=== PATIENT | female | born 1940 | race Caucasian/White ===

== ENCOUNTER → 2019-04-14 10:45 | Outpatient (BNVA) | payer BC, SELFPAY | PROVIDERS: Family Provider Nurse Practitioner Family; PCP Nurse Practitioner Family; Visit Provider Internal Medicine Rheumatology | DX: M35.00 Sjogren syndrome, unspecified (principal); Z79.899 Other long term (current) drug therapy; R76.8 Other specified abnormal immunological findings in serum; M19.041 Primary osteoarthritis, right hand; M19.042 Primary osteoarthritis, left hand; J44.9 Chronic obstructive pulmonary disease, unspecified; Z87.891 Personal history of nicotine dependence | CPT/HCPCS: 36415; 80076; 82565; 85651; 86140; 99214 ==

== ENCOUNTER → 2019-04-14 11:49 | Outpatient (BNVA) | payer BC, SELFPAY | PROVIDERS: Family Provider Nurse Practitioner Family; PCP Nurse Practitioner Family; Visit Provider Internal Medicine Rheumatology | DX: R76.8 Other specified abnormal immunological findings in serum (principal); M35.00 Sjogren syndrome, unspecified; Z79.899 Other long term (current) drug therapy; M19.90 Unspecified osteoarthritis, unspecified site; M19.041 Primary osteoarthritis, right hand | CPT/HCPCS: 85025 ==

== ENCOUNTER → 2021-03-21 12:25 | Outpatient (BNVA) | payer BC, SELFPAY | PROVIDERS: Family Provider Nurse Practitioner Family; PCP Nurse Practitioner Family; Visit Provider Nurse Practitioner Family | DX: Z20.822 Contact with and (suspected) exposure to COVID-19 (principal); J40 Bronchitis, not specified as acute or chronic | CPT/HCPCS: 87635 ==

== ENCOUNTER 2021-03-25 13:51 | Emergency (ER) | payer MEDICARE, SELFPAY ==
[2021-03-25 14:15] VITALS: BP 133/55; PULSE 61; RESP 16; O2SAT 93; BMI 28.3
[2021-03-25 14:21] VITALS: O2SAT 93
--- NOTE | 2021-03-25 14:32 | XR_ITS ---
WS: [id number] Exam: XR chest 1V portable [id number] Date/Time of Exam: 03/25/2021 2:45 PM Reason For Exam: dyspnea Comparison 11/17/2011. There is mild infiltrate and/or atelectasis in the right lower lung zone. Remaining lung churchill are c lear heart size is normal. The mediastinum is not widened. Costophrenic angles are sharp. The lungs a re hyperinflated. Bony structures are intact. XR/XR chest 1V portable [id number] IMPRESSION: 1. Mild infiltrate and/or atelectasis in the right lower lung zone. Pulmonary h yperinflation.
--- NOTE | 2021-03-25 14:37 | ED_ITS ---
HPI - COVID General: Chief Complaint: COVID symptoms Stated Complaint: WEAKNESS, COVID Time Seen by Provider: 03/25/21 14:23 Triage information: Has fever, cough or shortness of breath . Exposure to COVID + person last 14 days History of Present Illness: HPI Narrative: 80 year old female presents to ER via EMS for shortness of breath. History of COPD. Tested for COVID 4 days ago and was told it was COVID positive this zonia greco Patient reports symptoms have been going on for 2 weeks, but this morning she was feeling more SOB and fatigue. Patient is not on any oxygen at home and her O2 sat was in the high 80s this morning. Was put on 2L nasal cannula and oxygen improved to 93-94%. Report headache, sore throat, and cough. Denies diarrhea. Has not had COVID vaccine. MD complaint: known COVID positive COVID 19 common symptoms: positive cough, dyspnea, fatigue, headache(s) and throat pain; negative nausea, vomiting or diarrhea COVID 19 other sytmptoms: positive requiring oxygen; negative chest pain Onset (ago): day(s) Pertinent comorbid conditions: COPD/respiratory disease COVID Results: SARS-CoV-2 RNA (RT-PCR) Detected (NOT DETECTED) A 03/21/21 12:25 03/21/21 Review of Systems Const: Reports: fatigue ENMT: Reports: throat pain Card: Denies: chest pain, edema, dyspnea on exertion or orthopnea Resp: Reports: dyspnea GI: Denies: nausea, vomiting or diarrhea : Denies: flank pain, difficulty voiding, dysuria, urinary frequency or urinary urgency Skin/Breast: Denies: rash or pruritus Neuro: Reports: headache(s) PFSH ED PFSH: Medical History Bronchitis COPD (chronic obstructive pulmonary disease) Depression GERD (gastroesophageal reflux disease) High risk medication use Osteoarthritis of both hands Positive NOLAN (antinuclear antibody) Sjogren's syndrome Vitamin D deficiency Family History Denies family history of Rheumatoid arthritis Lupus Social History Smoking and tobacco status: never smoked Alcohol intake: never Physical Exam Const: GENERAL APPEARANCE: cooperative and comfortable ORIENTATION/CONSCIOUSNESS: Yes awake, Yes oriented to person, Yes oriented to place and Yes oriented to time OTHER: On 2L of O2. Resp: COMMON NORMALS: normal respiratory effort, No retractions, No use of accessory muscles and clear to auscultation bilaterally AUSCULTATION: clear to auscultation bilaterally Cardio: COMMON NORMALS: regular rate, regular rhythm and No murmurs present (Cardio) RATE: regular rate RHYTHM: regular rhythm GI: COMMON NORMALS: Soft to palpation PALPATION: Yes Soft to palpation, No Tenderness to palpation present (GI) and No Guarding due to palpation present (GI) Neuro: SENSORIUM/ORIENTATION: Yes oriented to person, Yes oriented to place and Yes oriented to time Skin: COMMON NORMALS: no rashes or lesions noted GENERAL SKIN EXAM: no rashes or lesions noted Course Vital Signs: Vital signs: Vital Signs Pulse Rate 61 03/25/21 15:31 Respiratory Rate 17 03/25/21 15:23 Blood Pressure 133/55 03/25/21 14:15 Pulse Oximetry 88 L 03/25/21 16:21 MDM - COVID MDM Narrative Medical decision making narrative: COVID-19. Sats remained stable on oxygen. Discharge home on oxygen 2 L by nasal cannula as well as prednisone. Sats remained in the 90s on the 2 L the last documented sat is at 88% however when a discharge patient and her sats on the 2 L were normal. However follow-up with her primary care doctor the next 1 to 2 days return to the ER if worsens. Lab Data Result diagrams: 03/25/21 14:09 03/25/21 14:09 Labs: Lab Results 03/25/21 03/25/21 03/25/21 14:09 14:09 14:09 WBC 9.1 10^3/uL 10^3/uL (4.0-10.0) RBC 4.40 10^6/uL 10^6/uL (4.1-5.3) Hgb 13.2 g/dL g/dL (11.5-15.3) Hct 42.2 % % (37.0-47.0) MCV 95.9 fl fl (81-99) MCH 30.0 pg pg (28.0-34.0) MCHC 31.3 g/dL g/dL (30.0-36.0) RDW 13.8 % % (12.1-15.1) Plt Count 116 10^3/cmm L 10^3/cmm (130-400) MPV 12.0 fL H fL (7.4-10.4) Neut % (Auto) 84.5 % % Lymph % (Auto) 10.8 % % [facility] % (Auto) 4.0 % % Eos % (Auto) 0.0 % % Baso % (Auto) 0.1 % % Neut # (Auto) 7.66 10^3/uL 10^3/uL (1.8-7.7) Lymph # (Auto) 1.0 10^3/uL 10^3/uL (0.8-4.8) [facility] # (Auto) 0.4 10^3/uL 10^3/uL (0.2-0.9) Eos # (Auto) 0.0 10^3/uL 10^3/uL (0.0-0.8) Baso # (Auto) 0.0 10^3/uL 10^3/uL (0.0-0.1) Nucleated RBC % (auto) 0 % % Nucleated RBCs # 0.0 /100WBC /100WBC Specimen Type Sample Site ABG pH ABG pCO2 ABG pO2 ABG HCO3 ABG Base Excess Remberto Test Hematocrit O2 Delivery Device O2 Liters/Min Social Services Manager ID Sodium 137 mmol/L mmol/L (136-145) Potassium 4.2 mmol/L mmol/L (3.5-5.1) Chloride 102 mmol/L mmol/L (98-107) Carbon Dioxide 21 mmol/L L mmol/L (22-29) Anion Gap 18.2 (5-19) BUN 17 mg/dL mg/dL (8-23) Creatinine 0.9 mg/dL mg/dL (0.5-0.9) GFR Calculation Not Reportable Glucose 118 mg/dL H mg/dL (65-115) Calculated Osmolality 287 mOsm/kg mOsm/kg (285-295) Lactic Acid 1.2 mmol/L mmol/L (0.5-2.2) Calcium 7.9 mg/dL L mg/dL (8.5-10.5) Total Bilirubin 0.4 mg/dL mg/dL (0.15-1.2) AST 49 U/L H U/L (0-32) ALT 36 U/L H U/L (0-33) Alkaline Phosphatase 64 IU/L IU/L (35-105) C-Reactive Protein 26.6 mg/L H mg/L (0.0-4.9) Total Protein 7.3 g/dL g/dL (6.6-8.7) Albumin 3.8 g/dL g/dL (3.5-5.2) Globulin 3.5 g/dL g/dL (1.3-4.6) 03/25/21 15:24 WBC RBC Hgb Hct MCV MCH MCHC RDW Plt Count MPV Neut % (Auto) Lymph % (Auto) [facility] % (Auto) Eos % (Auto) Baso % (Auto) Neut # (Auto) Lymph # (Auto) [facility] # (Auto) Eos # (Auto) Baso # (Auto) Nucleated RBC % (auto) Nucleated RBCs # Specimen Type Arterial Sample Site Radial, right ABG pH 7.45 (7.35-7.45) ABG pCO2 32.9 mmHg L mmHg (35-45) ABG pO2 62.4 mmHg L mmHg (80.0-100.0) ABG HCO3 22.9 mmol/L mmol/L (22-26) ABG Base Excess -0.5 mmol/L mmol/L (-2.0-2.0) Remberto Test Pos Hematocrit 40.4 % % (37-47) O2 Delivery Device Nc O2 Liters/Min 2.0 % % Social Services Manager ID Cak Sodium Potassium Chloride Carbon Dioxide Anion Gap BUN Creatinine GFR Calculation Glucose Calculated Osmolality Lactic Acid Calcium Total Bilirubin AST ALT Alkaline Phosphatase C-Reactive Protein Total Protein Albumin Globulin COVID Results: SARS-CoV-2 RNA (RT-PCR) Detected (NOT DETECTED) A 03/21/21 12:25 03/21/21 Discharge Plan Discharge Patient Disposition: Home Clinical Impression: COVID-19, Hypoxia Condition: Stable Prescriptions: New dexamethasone 6 mg tablet 6 mg PO DAILY Qty: 7 0RF Discontinued prednisone 20 mg tablet 20 mg PO BID 5 Days Qty: 10 0RF dexamethasone 6 mg tablet 6 mg PO DAILY 7 Days Qty: 7 0RF No Action levocetirizine [Xyzal] 5 mg tablet 5 mg PO DAILY PRN (Reason: allergy symptoms) 30 Days Qty: 30 0RF cholecalciferol (vitamin D3) 50,000 unit capsule 50,000 unit PO .weekly 0RF albuterol sulfate [ProAir HFA] 90 mcg/actuation HFA aerosol inhaler 2 puff INHALATION Q6H PRN0RF ipratropium-albuterol 0.5 mg-3 mg(2.5 mg base)/3 mL solution for nebulization 3 ml INHALATION Q6H PRN (Reason: wheezing) Qty: 90 0RF benzonatate [Tessalon Perles] 100 mg capsule 100 mg PO TID PRN (Reason: cough) 30 Days Qty: 90 0RF azithromycin 250 mg tablet See Rx Instructions PO .COMPLEX Qty: 6 0RF Rx Instructions: take 500 mg today (day 1), then 250 mg for 4 days (days 2-5) PO hydrocodone-acetaminophen 7.5-325 mg tablet 1 tab PO TID PRN (Reason: pain) 30 Days Qty: 90 0RF Rx Instructions: refill 03/25/2021 albuterol sulfate 2.5 mg /3 mL (0.083 %) solution for nebulization 2.5 mg INHALATION Q6H Qty: 360 1RF omeprazole 20 mg capsule,delayed release(DR/EC) 20 mg PO DAILY Qty: 90 1RF escitalopram oxalate 10 mg tablet See Rx Instructions .ROUTE .COMPLEX Qty: 30 0RF Dose Instruction: TAKE 1 TABLET BY MOUTH DAILY Rx Instructions: TAKE 1 TABLET BY MOUTH DAILY Trelegy Ellipta 100-62.5-25 mcg blister with device See Rx Instructions .ROUTE .COMPLEX Qty: 60 0RF Dose Instruction: INHALE ONE PUFF BY MOUTH EVERY 24 HOURS Rx Instructions: INHALE ONE PUFF BY MOUTH EVERY 24 HOURS Discharge Orders: Discharge ED (Routine); Ordered 03/25/21 Ordered By: Bakari Maher Other Ambulatory Orders: DME: Oxygen (Order) Location: None Selected Ordered By: Bakari Maher Referrals: LINDSEY Kaur, DEMOLITION CRANE OPERATOR [Primary Care Provider] - Patient Instructions: Opioid Safety Coding Level of Care Code ED It Support Technician for Chg Fwd Exam Detailed
[2021-03-25 15:21] LABS: Basophils % 0.1 %; Hematocrit 42.2 % (37.0-47.0); Hemoglobin 13.2 g/dL (11.5-15.3); Lymphocytes % 10.8 %; Mean Corpuscular HGB Conc 31.3 g/dL (30.0-36.0); Mean Corpuscular Volume 95.9 fl (81-99); Monocytes # 0.4 10^3/uL (0.2-0.9); Neutrophils # 7.66 10^3/uL (1.8-7.7); Neutrophils % 84.5 %; Nucleated Red Blood Cells % 0 %; Platelet Count 116 10^3/cmm (130-400); Red Cell Distribution Width 13.8 % (12.1-15.1); White Blood Count 9.1 10^3/uL (4.0-10.0)
[2021-03-25 15:23] VITALS: PULSE 61; RESP 17; O2SAT 93
[2021-03-25] MEDS: albuterol 8 gm MDI 2 PUFF INHALATION (15:23)
[2021-03-25 15:31] VITALS: PULSE 61
[2021-03-25 15:33] LABS: ABG PCO2 32.9 mmHg (35-45); Arterial Blood Gas Hematocrit 40.4 % (37-47); Blood Gas Allen Test Pos; Blood Gas Sample Type Arterial; PO2 ABG 62.4 mmHg (80.0-100.0)
[2021-03-25 15:34] LABS: ABG PH Result 7.45 (7.35-7.45); Base Excess ABG -0.5 mmol/L (-2.0-2.0); HCO3 ABG 22.9 mmol/L (22-26)
[2021-03-25 15:35] LABS: Blood Gas Operator Identificat CAK; Blood Gas Sample Site Radial, right; Oxygen Device NC
[2021-03-25 15:41] LABS: Lactic Sepsis W/Reflex 1.2 mmol/L (0.5-2.2)
[2021-03-25 15:49] LABS: Alanine Aminotransferase 36 U/L (0-33); Albumin Level 3.8 g/dL (3.5-5.2); Alkaline Phosphatase 64 IU/L (35-105); Anion Gap 18.2 (5-19); Aspartate Amino Transferase 49 U/L (0-32); Blood Urea Nitrogen 17 mg/dL (8-23); C Reactive Protein 26.6 mg/L (0.0-4.9); Calcium 7.9 mg/dL (8.5-10.5); Carbon Dioxide 21 mmol/L (22-29); Chloride 102 mmol/L (98-107); Globulin 3.5 g/dL (1.3-4.6); Glucose 118 mg/dL (65-115); Osmolality Calculated 287 mOsm/kg (285-295); Potassium 4.2 mmol/L (3.5-5.1); Sodium 137 mmol/L (136-145); Total Bilirubin 0.4 mg/dL (0.15-1.2); Total Protein 7.3 g/dL (6.6-8.7)
[2021-03-25 16:21] VITALS: O2SAT 88
== END 2021-03-25 17:52 | disposition home or self-care (01) ==
PROVIDERS: Emergency Provider Family Medicine; PCP Nurse Practitioner Family
DX: U07.1 COVID-19 (principal); R09.02 Hypoxemia; J44.9 Chronic obstructive pulmonary disease, unspecified
CPT/HCPCS: 36415; 36600; 71045; 80053; 82803; 83605; 85025; 86140; 94640; 99283; J3535

== ENCOUNTER 2022-03-20 10:20 | Outpatient (CLI) | payer BC, SELFPAY ==
[2022-03-20 11:15] VITALS: BMI 29.2
--- NOTE | 2022-03-20 11:18 | ECG_ITS ---
[facility] Test Date: 2022-03-20 Pat Name: Connie Lagos Department: Room: Gender: Female Clinical Lab Technologist: Yuni Hughes : 1940 Requested By: Kory Tillman Order Number: [id number] Sri MD: Alesia Dumas M.D. Interpretive Statements NAME OF STUDY: LEXISCAN SESTAMIBI STRESS TEST INDICATION: Shortness of Breath, PROCEDURE: At the baseline, the EKG revealed normal sinus rhythm with normal ST Ts. The baseline heart was 63 bpm with a blood pressue of 148/69 mm of Hg Lexiscan was infused over a period of 20 seconds. A total of 0.4 milligrams of Lexiscan was infused. The stress phase was continued for a total of 5 minutes. Heart rate at the end of the stress phase was 72 bpm with a blood pressure 139/60 mm of Hg. The EKG at the peak infusion revealed no significant changes. Sestamibi was injected 20 seconds after the Lexiscan infusion. Heart rate at the end of the recovery phase was 72 bpm with a blood pressure of 139/60 mm of Hg. CONCLUSION: 1. No significant EKG changes with the LexiScan infusion 2. No LexiScan induced chest pain or cardiac arrhythmia 3. Normal blood pressure and heart rate response 4. Sestamibi/sestamibi perfusion scan pending; see separate report. Electronically Signed On 03-21-2022 11:54:26 VOCATIONAL ED INSTRUCTOR by Alesia Dumas M.D. [id number]
--- NOTE | 2022-03-20 11:18 | NMCV_ITS ---
NM ahsan perf SPECT r/s* [id number] Connie Lagos Age: 81 Gender: F : 1940 Exam Date: 03/20/2022 11:18 Ordering Phys: Kory Enriquez MD Technologist: RALPH Meyer Exam Location: [facility] Indications: SHORTNESS OF BREATH STRESS TEST Please see separate stress test report in [facility] for full findings IMAGE PROTOCOL Rest/Stress 1 Lexiscan Day Radiopharmaceutical Dose (mCi) Administration Site Administered by Rest: Tc-99m 10.8 IV RALPH Sylvester Sestamibi Stress:Tc-99m 32.3 IV RALPH Sylvester Sestamibi Rest: 20-Mar-2022 60 Discovery 630 Stress: 20-Mar-2022 30 Discovery 630 0.4mg Lexiscan. Images obtained in supine and prone position. SPECT RESULTS Technical Quality: Excellent Raw Data Analysis: Normal Image Corrections: No attenuation or motion correction applied Summed Stress Score: 0 Summed Rest Score: 0 Summed Difference Score: 0 PERFUSION FINDINGS Fairly uniform myocardial tracer uptake. No significant perfusion abnormalities FUNCTIONAL RESULTS (calculated via Gated SPECT) Stress Image LV EF (%): 80 Stress EDV (mL):64 TID: 1.07 Stress ESV (mL):13 FUNCTIONAL FINDINGS: Segmental wall motion analysis revealing no gross wall motion abnormalities IMPRESSIONS 1. Unremarkable Myocardial perfusion imaging 2. Normal LV ejection fraction of 80% 3. LV wall motion analysis revealing no gross wall motion abnormalities. 4. Normal LV volume Low probability for coronary ischemia, based on the above findings Dr Alesia Dumas MD [facility] (Electronically Signed) Final Date: 20 March 2022 20:01 S
[2022-03-20] MEDS: regadenoson 0.4 Mg/5 ml Syringe IVP (12:30)
[2022-03-20 12:50] VITALS: BP 147/64; PULSE 73
== END 2022-03-20 10:21 | disposition home or self-care (01) ==
PROVIDERS: PCP Internal Medicine Cardiovascular Disease; Visit Provider Internal Medicine Pulmonary Disease
DX: R06.09 Other forms of dyspnea (principal); R06.02 Shortness of breath
CPT/HCPCS: 36415; 78452; 93017; 96374; A9500; J2785

== ENCOUNTER 2022-04-24 12:24 | Outpatient (CLI) | payer BC, SELFPAY | END 2022-04-24 12:25 | disposition home or self-care (01) | LOC: RT 12:25 | PROVIDERS: PCP Internal Medicine Cardiovascular Disease; Visit Provider Internal Medicine Pulmonary Disease | DX: J44.9 Chronic obstructive pulmonary disease, unspecified (principal); U09.9 Post COVID-19 condition, unspecified; R06.02 Shortness of breath | CPT/HCPCS: 94010; 94618; 94726; 94729 ==

== ENCOUNTER → 2022-10-08 13:39 | Outpatient (BNVA) | payer BC, SELFPAY | PROVIDERS: PCP Internal Medicine Cardiovascular Disease; Visit Provider Internal Medicine Rheumatology | DX: Z79.899 Other long term (current) drug therapy (principal); M06.9 Rheumatoid arthritis, unspecified | CPT/HCPCS: 36415; 73130; 73630; 80076; 82565; 85025; 86480; 86704; 86803; 87340 ==

== ENCOUNTER 2022-10-29 14:47 | Outpatient (CLI) | payer BC, SELFPAY ==
--- NOTE | 2022-10-29 15:30 | XR_ITS ---
WS: [id number] SCREENING DEXA SCAN [employer] CLINICAL INFORMATION: M81.0 - Age-related osteoporosis without current patholog... COMPARISON: 2017 FINDINGS: The L1-L4 bone mineral density measures 0.886 g/cm2. This corresponds to a T score score of -2.4 and Z score of -1.0. Left femoral neck bone mineral density measures 0.741 g/cm2. This corresponds to a T score of -2.1 an d Z score of -0.4. Right femoral neck bone mineral density measures 0.660 g/cm2. This corresponds to a T score -2.8of an d Z score of -1.0. Mean femoral neck bone mineral density measures 0.700 g/cm2. This corresponds to a T score of -2.4 an d Z score of -0.7. IMPRESSION: Osteopenia lumbar spine approaching osteoporosis. Osteopenia Mean femoral necks approaching osteoporo sis Patient's FRAX calculated 10 year probability for major osteoporotic fracture is 30.9% and osteoporot ic hip fracture is 13.8%. Bone mineral density lumbar spine increased 2.0% since 2017 Bone mineral density femoral necks decreased -1.7% since 2017
== END 2022-10-29 14:48 | disposition home or self-care (01) ==
PROVIDERS: PCP Internal Medicine Cardiovascular Disease; Visit Provider Internal Medicine Rheumatology
DX: M81.0 Age-related osteoporosis without current pathological fracture (principal)
CPT/HCPCS: 77080

== ENCOUNTER → 2023-01-14 13:45 | Outpatient (BNVA) | payer BC, SELFPAY | PROVIDERS: PCP Internal Medicine Cardiovascular Disease; Visit Provider Internal Medicine Rheumatology | DX: Z79.899 Other long term (current) drug therapy (principal); M35.00 Sjogren syndrome, unspecified | CPT/HCPCS: 36415; 80076; 82565; 85025; 86140 ==

== ENCOUNTER → 2023-05-20 13:43 | Outpatient (BNVA) | payer BC, SELFPAY | PROVIDERS: PCP Family Medicine; Visit Provider Internal Medicine Rheumatology | DX: Z79.899 Other long term (current) drug therapy (principal); M35.00 Sjogren syndrome, unspecified; M19.031 Primary osteoarthritis, right wrist | CPT/HCPCS: 36415; 73130; 73562; 73630; 80076; 82565; 83520; 85025; 85651; 86140; 86200; 86431 ==

== ENCOUNTER 2023-09-10 23:14 | Emergency (ER) | payer BC, MEDICARE, SELFPAY ==
--- NOTE | 2023-09-10 23:16 | XRR_ITS ---
PROCEDURE INFORMATION: Exam: XR Chest Exam date and time: 09/10/2023 11:22 PM Age: 83 years old Clinical indication: Chest wall pain; Additional info: Chest pain TECHNIQUE: Imaging protocol: Radiologic exam of the chest. Views: 1 view. COMPARISON: CR XR chest 1V portable [id number] 03/25/2021 2:56 PM FINDINGS: Lungs: There is a background of emphysema and pulmonary fibrosis. This appears stable compared with 03/25/2021. There are some increased interstitial markings present in the left lower hemithorax possibly representing a progression of the patient's pulmonary fibrosis although an infiltrate cannot entirely excluded. Pleural spaces: Unremarkable. No pleural effusion. No pneumothorax. Heart/Mediastinum: Unremarkable. No cardiomegaly. Bones/joints: Unremarkable. XR/XR chest 1V portable [id number] IMPRESSION: 1. Stable background of emphysema pulmonary fibrosis. 2. Increased opacity seen in the left lower hemithorax may represent a mild progression patient's pulmonary fibrosis although superimposed infiltrate cannot be entirely excluded.
--- NOTE | 2023-09-10 23:20 | ED_ITS ---
HPI - Chest Pain 2 General: Chief Complaint: Chest Pain Stated Complaint: Chest Pain Time Seen by Provider: 09/10/23 23:17 History of Present Illness: Patient presents to the ER by EMS with complaints of substernal chest pain. This started suddenly lasted about 30 minutes. She was pain-free by the time EMS got there they can did end up giving her 3 and 24 mg aspirin and brought her into for further evaluation. Patient has no cardiac history. Patient denies any shortness of breath diaphoresis says she did get nauseous when his pain was there. Patient is all back to normal per her. 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 COVID-19 Bronchitis High risk medication use Positive NOLAN (antinuclear antibody) Osteoarthritis of both hands Sjogren's syndrome Depression COPD (chronic obstructive pulmonary disease) GERD (gastroesophageal reflux disease) Vitamin D deficiency Family History Denies family history of Rheumatoid arthritis Lupus Social History Smoking and tobacco/nicotine status: former use of tobacco/nicotine Quit status (tobacco/nicotine): has quit using Year quit tobacco: 1998 Former quit date comment: 1ppd x 39 years Alcohol intake: never Substance/Drug Use: never Physical Exam 2 Const: COMMON NORMALS: no acute distress, average body habitus, patient oriented x3, no limitations, healthy appearing, alert and well nourished HENMT: COMMON NORMALS: normocephalic, atraumatic, hearing grossly normal bilaterally, external ears normal, Normal external nose present and moist oral mucous membranes HEAD & SCALP: normocephalic and atraumatic NOSE: Normal external nose present EXTERNAL EAR: Yes external ears normal Neck/C-Spine: COMMON NORMALS: no JVD Chest: COMMONS NORMALS: normal inspection of the chest and normal palpation of entire chest wall Resp: COMMON NORMALS: normal respiratory effort, No retractions, No use of accessory muscles and clear to auscultation bilaterally AUSCULTATION: clear to auscultation bilaterally Cardio: COMMON NORMALS: no JVD, regular rate, regular rhythm, S1 normal heart sound present, S2 normal heart sound present, No gallops present (Cardio), No clicks present (Cardio), No murmurs present (Cardio) and No rub (Cardio) R ATE: regular rate RHYTHM: regular rhythm HEART SOUNDS: S1 normal heart sound present and S2 normal heart sound present GI: COMMON NORMALS: Normal to inspection, nondistended, normoactive bowel sounds present, Soft to palpation, non-tender, No hepatosplenomegaly present and no masses PALPATION: Yes Soft to palpation and Yes No hepatosplenomegaly present Neuro: COMMON NORMALS: patient oriented x3 SENSORIUM/ORIENTATION: Yes alert Course 2 Vital Signs: Vital signs: Vital Signs Temperature 98.0 F 09/10/23 23:22 Pulse Rate 97 09/11/23 02:35 Respiratory Rate 16 09/11/23 02:35 Blood Pressure 146/85 09/11/23 02:35 Pulse Oximetry 92 09/11/23 02:35 Oxygen Delivery Me thod Room Air 09/11/23 00:28 MDM - Chest Pain Medical Decision Making Patient presented with chest pain and was worked up in a standard chest pain fashion with serial EKGs, lab work and chest x-ray, all of which was essentially unremarkable. Patient joceline pain-free during her entire stay here. Patient be discharged home. Differential Diagnosis Unlikely acute massive pulmonary embolism, acute respiratory failure, acute myocardial infarction, cardiac arrest or sudden cardiac Medical Records I reviewed the patient's medical records. Lab Data I reviewed the patient's lab results. 09/11/23 00:38 09/11/23 00:38 Radiology Impressions Chest X-Ray 09/10/23 23:16 IMPRESSION: 1. Stable background of emphysema pulmonary fibrosis. 2. Increased opacity seen in the left lower hemithorax may represent a mild progression patient's pulmonary fibrosis although superimposed infiltrate cannot be entirely excluded. Laboratory Results WBC 6.95 10^3/uL (3.29-11.43) 09/11/23 00:38 RBC 4.24 10^6/uL (3.85-5.65) 09/11/23 00:38 Hgb 13.20 g/dL (11.27-16.99) 09/11/23 00:38 Hct 40.4 % (36-47) 09/11/23 00:38 MCV 95.3 fl (85-98) 09/11/23 00:38 MCH 31.1 pg (27-33) 09/11/23 00:38 MCHC 32.7 g/dL (30-55) 09/11/23 00:38 RDW 12.8 % (12.1-15.1) 09/11/23 00:38 Plt Count 188 10^3/cmm (157-399) 09/11/23 00:38 MPV 11.7 fL (7.4-10.4) H 09/11/23 00:38 Neut % (Auto) 62.2 % 09/11/23 00:38 Lymph % (Auto) 27.8 % 09/11/23 00:38 Garrett % (Auto) 8.2 % 09/11/23 00:38 Eos % (Auto) 1.4 % 09/11/23 00:38 Baso % (Auto) 0.3 % 09/11/23 00:38 Neut # (Auto) 4.32 10^3/uL (1.8-7.7) 09/11/23 00:38 Lymph # (Auto) 1.9 10^3/uL (0.8-4.8) 09/11/23 00:38 Garrett # (Auto) 0.6 10^3/uL (0.2-0.9) 09/11/23 00:38 Eos # (Auto) 0.1 10^3/uL (0.0-0.8) 09/11/23 00:38 Baso # (Auto) 0.0 10^3/uL (0.0-0.1) 09/11/23 00:38 Nucleated RBC % (auto) 0 % 09/11/23 00:38 Nucleated RBCs # 0.0 /100WBC 09/11/23 00:38 Sodium 138 mmol/L (136-145) 09/11/23 00:38 Potassium 4.2 mmol/L (3.5-5.1) 09/11/23 00:38 Chloride 103 mmol/L (98-107) 09/11/23 00:38 Carbon Dioxide 24 mmol/L (22-29) 09/11/23 00:38 Anion Gap 15.2 (5-19) 09/11/23 00:38 BUN 21 mg/dL (8-23) 09/11/23 00:38 Creatinine 0.9 mg/dL (0.5-0.9) 09/11/23 00:38 GFR Calculation Not Reportable 09/11/23 00:38 Glucose 105 mg/dL (65-115) 09/11/23 00:38 Calculated Osmolality 289 mOsm/kg (285-295) 09/11/23 00:38 Calcium 9.4 mg/dL (8.5-10.5) 09/11/23 00:38 Total Bilirubin 0.3 mg/dL (0.15-1.2) 09/11/23 00:38 AST 23 U/L (0-32) 09/11/23 00:38 ALT 15 U/L (0-33) 09/11/23 00:38 Alkaline Phosphatase 51 U/L (35-105) 09/11/23 00:38 Troponin T Baseline 9 ng/L (0-10) 09/11/23 00:38 Troponin T 120 Minute 9.33 ng/L (0-10) 09/11/23 02:27 Delta Troponin T 0.33 ABS# (0-10) 09/11/23 02:27 Total Protein 7.7 g/dL (6.6-8.7) 09/11/23 00:38 Albumin 4.4 g/dL (3.5-5.2) 09/11/23 00:38 Globulin 3.3 g/dL (1.3-4.6) 09/11/23 00:38 All radiology interpretation(s) finalized by discharge Discharge Plan Discharge Patient Disposition: Home Clinical Impression: Atypical chest pain Condition: Stable Prescriptions: No Action (DME) Oxygen 2L/NC See Rx Instructions .Route .MEDSUPPLY Qty: 1 0RF Rx Instructions: As directed loratadine [Claritin] 10 mg tablet 10 mg PO DAILY Qty: 30 0RF alendronate [Fosamax] 70 mg tablet 70 mg PO .weekly Qty: 15 1RF albuterol sulfate [ProAir HFA] 90 mcg/actuation HFA aerosol inhaler 2 puff INHALATION Q6H PRN (Reason: shortness of breath or wheezing) Qty: 8.5 5RF amoxicillin 875 mg tablet 875 mg PO BID Qty: 20 0RF omeprazole 20 mg capsule,delayed release(DR/EC) 20 mg PO DAILY Qty: 90 1RF Actemra 162 mg/0.9 mL syringe 162 mg SUBCUT Q7D Qty: 4 5RF albuterol sulfate 2.5 mg /3 mL (0.083 %) solution for nebulization 2.5 mg INHALATION Q6H Qty: 360 1RF hydrocodone-acetaminophen 7.5-325 mg tablet 1 tab PO TID PRN (Reason: pain) 30 Days Qty: 90 0RF Trelegy Ellipta 100-62.5-25 mcg blister with device 1 inh inhalation DAILY Qty: 60 6RF escitalopram oxalate 10 mg tablet See Rx Instructions .ROUTE .COMPLEX Qty: 90 1RF Dose Instruction: TAKE 1 TABLET BY MOUTH DAILY Rx Instructions: TAKE 1 TABLET BY MOUTH DAILY Discharge Orders: Discharge ED (Routine); Ordered 09/11/23 Ordered By: Johnny Melara Referrals: Ramón Stafford MD [Primary Care Provider] - 1 week Patient Instructions: Chest Pain (ED) Activity Restrictions/Additional Instructions: Your evaluation ER did not reveal an acute cardiac cause of your chest pain. Your chest pain is felt to be noncardiac in nature. Please follow-up with your family practitioner the next 7 days for further evaluation testing as needed. If your chest pain worsens please feel free to return to the ER. Coding Level of Care Code ED Potline Monitor for Lucy Talley
[2023-09-10 23:22] VITALS: BP 170/79; PULSE 64; RESP 16; TEMP 36.7; O2SAT 98
--- NOTE | 2023-09-10 23:23 | ECG_ITS ---
[facility] Test Date: 2023-09-10 Pat Name: Connie Lagos Department: Room: Gender: Female Cardiothoracic Anesthesia Technician: : 1940 Requested By: Johnny Melara Order Number: [id number] Sri MD: Vernon Do M.D. Measurements Intervals [place] Rate: 60 P: 84 SC: 176 QRS: 5 QRSD: 75 T: 33 QT: 382 QTc: 385 Interpretive Statements SINUS RHYTHM MODERATE VOLTAGE CRITERIA FOR LVH, CONSIDER NORMAL VARIANT [MEETS CRITERIA IN ONE OF: R(aVL), S(V1), R(V5), R(V5/V6)+S(V1)] POSSIBLE ANTEROSEPTAL MYOCARDIAL INFARCTION , OF INDETERMINATE AGE [30 ms Q WAVE IN V1-V4] No previous ECG available for comparison Electronically Signed On 09-11-2023 18:45:31 CDT by Vernon Do M.D. [id number]
[2023-09-10 23:24] VITALS: BP 140/81; PULSE 70; RESP 15; O2SAT 94
[2023-09-10 23:54] VITALS: BP 140/67; PULSE 61; RESP 17; O2SAT 94
[2023-09-11 00:28] VITALS: BP 133/75; PULSE 59; RESP 18; O2SAT 95
[2023-09-11 00:48] LABS: Basophils % 0.3 %; Eosinophils # 0.1 10^3/uL (0.0-0.8); Eosinophils % 1.4 %; Hematocrit 40.4 % (36-47); Lymphocytes # 1.9 10^3/uL (0.8-4.8); Lymphocytes % 27.8 %; Mean Corpuscular HGB Conc 32.7 g/dL (30-55); Mean Corpuscular Hemoglobin 31.1 pg (27-33); Mean Corpuscular Volume 95.3 fl (85-98); Mean Platelet Volume 11.7 fL (7.4-10.4); Monocytes # 0.6 10^3/uL (0.2-0.9); Monocytes % 8.2 %; Neutrophils # 4.32 10^3/uL (1.8-7.7); Neutrophils % 62.2 %; Nucleated Red Blood Cells % 0 %; Platelet Count 188 10^3/cmm (157-399); Red Blood Count 4.24 10^6/uL (3.85-5.65); Red Cell Distribution Width 12.8 % (12.1-15.1); White Blood Count 6.95 10^3/uL (3.29-11.43)
[2023-09-11 01:06] LABS: Troponin(5th) Baseline 9 ng/L (0-10)
[2023-09-11 01:07] LABS: Alanine Aminotransferase 15 U/L (0-33); Albumin Level 4.4 g/dL (3.5-5.2); Alkaline Phosphatase 51 U/L (35-105); Anion Gap 15.2 (5-19); Aspartate Amino Transferase 23 U/L (0-32); Blood Urea Nitrogen 21 mg/dL (8-23); Calcium 9.4 mg/dL (8.5-10.5); Carbon Dioxide 24 mmol/L (22-29); Chloride 103 mmol/L (98-107); Creatinine Clr Calc Pharmacy 47.9223; Globulin 3.3 g/dL (1.3-4.6); Glucose 105 mg/dL (65-115); Osmolality Calculated 289 mOsm/kg (285-295); Potassium 4.2 mmol/L (3.5-5.1); Sodium 138 mmol/L (136-145); Total Bilirubin 0.3 mg/dL (0.15-1.2); Total Protein 7.7 g/dL (6.6-8.7)
[2023-09-11 02:35] VITALS: BP 146/85; PULSE 97; RESP 16; O2SAT 92
[2023-09-11 03:08] LABS: Troponin 5 2HR 9.33 ng/L (0-10); Troponin 5 2HR Delta 0.33 ABS# (0-10)
[2023-09-11 03:26] VITALS: BP 146/85; PULSE 97; RESP 16; TEMP 36.7; O2SAT 92
== END 2023-09-11 03:26 | disposition home or self-care (01) ==
PROVIDERS: Emergency Provider Emergency Medicine; PCP Family Medicine
DX: R07.89 Other chest pain (principal); J44.9 Chronic obstructive pulmonary disease, unspecified; Z79.899 Other long term (current) drug therapy; Z86.16 Personal history of COVID-19; Z87.891 Personal history of nicotine dependence
CPT/HCPCS: 71045; 80053; 84484; 85025; 93005; 99285

== ENCOUNTER → 2024-05-25 15:47 | Outpatient (BNVA) | payer BC, SELFPAY | PROVIDERS: PCP Family Medicine; Visit Provider Internal Medicine Rheumatology | DX: M06.041 Rheumatoid arthritis without rheumatoid factor, right hand (principal); M06.042 Rheumatoid arthritis without rheumatoid factor, left hand; M25.562 Pain in left knee; M25.561 Pain in right knee; M81.0 Age-related osteoporosis without current pathological fracture; Z79.899 Other long term (current) drug therapy | CPT/HCPCS: 36415; 73562; 80076; 82306; 82565; 85025; 85651; 86140 ==

== ENCOUNTER → 2024-06-22 10:06 | Outpatient (BNVA) | payer BC, SELFPAY | PROVIDERS: PCP Family Medicine; Visit Provider Family Medicine | DX: D69.6 Thrombocytopenia, unspecified (principal); Z79.899 Other long term (current) drug therapy | CPT/HCPCS: 80053; 85025 ==

== ENCOUNTER 2024-09-06 05:00 | Outpatient (RCR) | payer BC, SELFPAY | END 2024-10-06 23:59 | disposition home or self-care (01) | LOC: WPT 05:00 | PROVIDERS: PCP Family Medicine; Visit Provider Internal Medicine Rheumatology | DX: M25.569 Pain in unspecified knee (principal) | CPT/HCPCS: 97161 ==

== ENCOUNTER → 2024-09-14 15:03 | Outpatient (BNVA) | payer BC, SELFPAY | PROVIDERS: PCP Family Medicine; Visit Provider Internal Medicine Rheumatology | DX: Z79.899 Other long term (current) drug therapy (principal) | CPT/HCPCS: 36415; 80076; 82565; 85025; 85651; 86140; 86480; 86704; 86803; 87340 ==